=== PATIENT | male | born 1975 | race Caucasian/White ===

== ENCOUNTER 2022-10-29 11:10 | Day surgery (SDC) | payer OTHER ==
[~2022-10-29] VITALS: Ht 175.3 cm; Wt 87.5 kg
[~2022-10-29 11:10] MED LIST: BUPR100ER; FLUO10
[2022-10-29 13:41] VITALS: BP 134/77
== END 2022-10-29 13:37 | disposition home or self-care (01) ==
LOC: ORSCSDS 11:10
PROVIDERS: Internal Medicine Gastroenterology
PROC: 0DBN8ZX Excision of Sigmoid Colon, Via Natural or Artificial Opening Endoscopic, Diagnostic (ICD-10-PCS; principal; 2022-10-29 12:45)
PROC: 0DBM8ZX Excision of Descending Colon, Via Natural or Artificial Opening Endoscopic, Diagnostic (ICD-10-PCS; principal; 2022-10-29 12:45)
DX: Z12.11 Encounter for screening for malignant neoplasm of colon (principal); D12.4 Benign neoplasm of descending colon; K63.5 Polyp of colon; K64.8 Other hemorrhoids; Z79.899 Other long term (current) drug therapy; Z87.891 Personal history of nicotine dependence
CPT/HCPCS: 88305; J2001; J2405; J2704; J7120